=== PATIENT | male | born 1965 | race Caucasian/White ===

== ENCOUNTER 2017-11-27 10:08 | Inpatient (IN) | payer OTHER ==
[2017-11-27 10:32] LABS: ADD MAN DIFF? NO
[2017-11-27 10:33] LABS: WHITE BLOOD COUNT 5.4 10^3/ul (4.8-10.8)
[2017-11-27 10:33] LABS: BASOPHIL # 0.1 10^3/ul (0.0-0.1); BASOPHILS % 1.1 % (0.0-2.0); EOSINOPHILS % 0.2 % (0.0-7.0); HEMATOCRIT 42.8 % (42.0-52.0); HEMOGLOBIN 14.5 g/dl (14.0-18.0); LYMPHOCYTES # 1.9 10^3/ul (0.8-2.9); LYMPHOCYTES % 35.4 % (15.0-51.0); MEAN CORPUSCULAR HEMOGLOBIN 28.7 pg (29.0-33.0); MEAN CORPUSCULAR HGB CONC 33.9 g/dl (32.0-37.0); MEAN CORPUSCULAR VOLUME 84.6 fl (82.0-101.0); MEAN PLATELET VOLUME 9.5 fl (7.4-10.4); MONOCYTE # 0.6 10^3/ul (0.3-0.9); NEUTROPHIL # 2.8 10^3/ul (1.6-7.5); NEUTROPHILS % 52.1 % (39.0-77.0); PLATELET COUNT 180 10^3/UL (140-415); RED BLOOD COUNT 5.06 10^6/ul (4.70-6.10); RED CELL DISTRIBUTION WIDTH 13.8 % (11.5-14.5)
[2017-11-27 10:35] LABS: MODE ROOM AIR; MetHgb Venous 0.2 %; Sample Type Blood venous; Site VENOUS LINE; Venous COHb 0.2 %; Venous Fraction OxyHgb 74.9 %; Venous Oxygen Sat 75.2 mmHG (55.0-75.0); Venous Total Hemglobin 15.8 g/dl
[2017-11-27] MEDS: SOD CHLORIDE 0.9% 770 ML IV (10:42)
[2017-11-27 11:59] LABS: ANION GAP 24 (5-13)
[2017-11-27 12:00] LABS: BLOOD UREA NITROGEN 12 mg/dl (7-20); CALCIUM 9.6 mg/dl (8.4-10.2); CHLORIDE 106 mmol/L (97-110); CREATININE 0.94 mg/dl (0.61-1.24); GLUCOSE 339 mg/dl (70-220); MAGNESIUM 2.1 mg/dl (1.7-2.5); PHOSPHORUS 3.1 mg/dl (2.5-4.9); POTASSIUM 3.5 mmol/L (3.5-5.1); SODIUM 137 mmol/L (135-144)
[2017-11-27 12:04] LABS: CARBON DIOXIDE 7 mmol/L (21-31)
[2017-11-27] MEDS ORDERED: SOD CHLORIDE 0.9% 1,000 ML IV (12:05)
[2017-11-27] MEDS ORDERED: SODIUM CHLORIDE 23.4% 77 MEQ in DEXTROSE 10% 1,000 ML IV (12:05)
[2017-11-27] MEDS: LACTATED RINGER S IV ×2 (12:10→13:35)
[2017-11-27] MEDS ORDERED: DEXTROSE 50% 50 ML SYRINGE IV ×2 (12:30)
[2017-11-27] MEDS: LIDOCAINE/MYLANTA 40 ML BTL PO (13:17)
[2017-11-27 13:33] LABS: ANION GAP 21 (5-13); BLOOD UREA NITROGEN 10 mg/dl (7-20); CARBON DIOXIDE 10 mmol/L (21-31); CHLORIDE 107 mmol/L (97-110); CREATININE 0.79 mg/dl (0.61-1.24); GLUCOSE 264 mg/dl (70-220); MAGNESIUM 2.1 mg/dl (1.7-2.5); PHOSPHORUS 2.8 mg/dl (2.5-4.9); POTASSIUM 3.9 mmol/L (3.5-5.1); SODIUM 138 mmol/L (135-144)
[2017-11-27 14:09] LABS: HEMOGLOBIN A1C 12.3 % (0-5.9)
[2017-11-27 14:28] LABS: TROPONIN-I < 0.012 ng/ml (0.000-0.120)
[2017-11-27] MEDS: INSULIN REGULAR, HUMAN 100 UNIT in SOD CHLORIDE 0.9% 100 ML IV (14:30)
[2017-11-27] MEDS: SODIUM CHLORIDE 23.4% 77 MEQ, POTASSIUM CHLORIDE 30 MEQ in DEXTROSE 10% 1,000 ML IV ×2 (14:30→15:30)
[2017-11-27] MEDS: POTASSIUM CHLORIDE 30 MEQ in SOD CHLORIDE 0.9% 1,000 ML IV (14:30)
[2017-11-27 16:00] LABS: MODE ROOM AIR; MetHgb Venous 1.6 %; Sample Type Blood venous; Site VENOUS LINE; Venous COHb 0.3 %; Venous Fraction OxyHgb 30.7 %; Venous Oxygen Sat 31.3 mmHG (55.0-75.0)
[2017-11-27 16:28] LABS: ANION GAP 18 (5-13); BLOOD UREA NITROGEN 9 mg/dl (7-20); CALCIUM 8.7 mg/dl (8.4-10.2); CARBON DIOXIDE 12 mmol/L (21-31); CHLORIDE 108 mmol/L (97-110); CREATININE 0.86 mg/dl (0.61-1.24); GLUCOSE 200 mg/dl (70-220); MAGNESIUM 2.2 mg/dl (1.7-2.5); PHOSPHORUS 2.3 mg/dl (2.5-4.9); POTASSIUM 3.3 mmol/L (3.5-5.1); SODIUM 138 mmol/L (135-144)
[2017-11-27 18:38] LABS: ANION GAP 16 (5-13); BLOOD UREA NITROGEN 10 mg/dl (7-20); CARBON DIOXIDE 15 mmol/L (21-31); CHLORIDE 106 mmol/L (97-110); CREATININE 0.82 mg/dl (0.61-1.24); GLUCOSE 210 mg/dl (70-220); MAGNESIUM 2.2 mg/dl (1.7-2.5); PHOSPHORUS 1.4 mg/dl (2.5-4.9); POTASSIUM 4.1 mmol/L (3.5-5.1); SODIUM 137 mmol/L (135-144)
[2017-11-27] MEDS: POTASSIUM CHLORIDE (SR) 20 MEQ TAB PO (19:00)
[2017-11-27 20:49] LABS: ANION GAP 14 (5-13); BLOOD UREA NITROGEN 9 mg/dl (7-20); CALCIUM 8.8 mg/dl (8.4-10.2); CARBON DIOXIDE 15 mmol/L (21-31); CHLORIDE 107 mmol/L (97-110); CREATININE 0.71 mg/dl (0.61-1.24); GLUCOSE 235 mg/dl (70-220); MAGNESIUM 2.1 mg/dl (1.7-2.5); PHOSPHORUS 1.4 mg/dl (2.5-4.9); SODIUM 136 mmol/L (135-144)
[2017-11-27] MEDS: LOSARTAN 50 MG TAB PO (21:00)
[2017-11-27 21:07] LABS: POTASSIUM 2.9 mmol/L (3.5-5.1)
[2017-11-27] MEDS: POTASSIUM CHLORIDE 40 MEQ in SOD CHLORIDE 0.9% 1,000 ML IV (21:44)
[2017-11-27] MEDS: POTASSIUM CHLORIDE 100 ML IVPB (21:59)
[2017-11-27] MEDS: SODIUM CHLORIDE 23.4% 77 MEQ, POTASSIUM CHLORIDE 40 MEQ in DEXTROSE 10% 1,000 ML IV (23:41)
[2017-11-28] MEDS: POTASSIUM CHLORIDE 100 ML IVPB (00:36)
[2017-11-28 01:46] LABS: ANION GAP 7 (5-13); BLOOD UREA NITROGEN 9 mg/dl (7-20); CALCIUM 8.9 mg/dl (8.4-10.2); CARBON DIOXIDE 18 mmol/L (21-31); CHLORIDE 111 mmol/L (97-110); CREATININE 0.61 mg/dl (0.61-1.24); GLUCOSE 147 mg/dl (70-220); PHOSPHORUS 1.3 mg/dl (2.5-4.9); POTASSIUM 3.5 mmol/L (3.5-5.1); SODIUM 136 mmol/L (135-144)
[2017-11-28] MEDS: INSULIN REGULAR, HUMAN 100 UNIT in SOD CHLORIDE 0.9% 100 ML IV (01:56)
[2017-11-28] MEDS: SODIUM CHLORIDE 23.4% 77 MEQ, POTASSIUM CHLORIDE 30 MEQ in DEXTROSE 10% 1,000 ML IV (03:03)
[2017-11-28] MEDS: INSULIN GLARGINE [LANTus] (100 UNITS/ML) SYG SC ×2 (03:10→20:07)
[2017-11-28 05:55] LABS: CHOLESTEROL 212 mg/dl (100-200)
[2017-11-28 05:55] LABS: CHOL/HDL RATIO 6.2 RATIO; HDL CHOLESTEROL 34 mg/dl (28-71); LDL CHOLESTEROL,CALCULATED 142 mg/dl; TRIGLYCERIDES 178 mg/dl (0-149)
[2017-11-28 06:04] LABS: ANION GAP 7 (5-13); BLOOD UREA NITROGEN 9 mg/dl (7-20); CARBON DIOXIDE 19 mmol/L (21-31); CHLORIDE 111 mmol/L (97-110); CREATININE 0.62 mg/dl (0.61-1.24); GLUCOSE 158 mg/dl (70-220); PHOSPHORUS 1.3 mg/dl (2.5-4.9); POTASSIUM 3.3 mmol/L (3.5-5.1); SODIUM 137 mmol/L (135-144)
[2017-11-28 08:38] LABS: ANION GAP 8 (5-13); BLOOD UREA NITROGEN 8 mg/dl (7-20); CARBON DIOXIDE 18 mmol/L (21-31); CHLORIDE 110 mmol/L (97-110); CREATININE 0.58 mg/dl (0.61-1.24); GLUCOSE 134 mg/dl (70-220); PHOSPHORUS 1.4 mg/dl (2.5-4.9); POTASSIUM 3.4 mmol/L (3.5-5.1); SODIUM 136 mmol/L (135-144)
[2017-11-28] MEDS: METOPROLOL (XL) 25 MG TAB PO (09:44)
[2017-11-28] MEDS: POTASSIUM CHLORIDE (SR) 20 MEQ TAB PO (09:45)
[2017-11-28] MEDS ORDERED: GLUCOSE GEL 15 GRAM TUBE PO ×2 (10:30)
[2017-11-28] MEDS ORDERED: GLUCOSE GEL 15 GRAM TUBE BUCCAL (10:30)
[2017-11-28] MEDS ORDERED: GLUCAGON 1 MG INJ IM (10:30)
[2017-11-28] MEDS ORDERED: DEXTROSE 50% 50 ML SYRINGE IV ×2 (10:30)
[2017-11-28] MEDS: INSULIN ASPART [NOVOLOG] 3 ML PEN SC ×5 (11:59→21:28)
[2017-11-28 12:43] LABS: ANION GAP 11 (5-13); BLOOD UREA NITROGEN 9 mg/dl (7-20); CALCIUM 8.8 mg/dl (8.4-10.2); CARBON DIOXIDE 18 mmol/L (21-31); CHLORIDE 105 mmol/L (97-110); CREATININE 0.65 mg/dl (0.61-1.24); GLUCOSE 227 mg/dl (70-220); MAGNESIUM 1.8 mg/dl (1.7-2.5); PHOSPHORUS 1.7 mg/dl (2.5-4.9); POTASSIUM 3.9 mmol/L (3.5-5.1); SODIUM 134 mmol/L (135-144)
[2017-11-28] MEDS: IOHEXOL 14.3 MG(I)/ML (ADULT) BTL PO (13:25)
[2017-11-28] MEDS: LINAGLIPTIN 5 MG TABLET PO (14:27)
[2017-11-28 17:17] LABS: ANION GAP 8 (5-13); BLOOD UREA NITROGEN 8 mg/dl (7-20); CARBON DIOXIDE 21 mmol/L (21-31); CHLORIDE 105 mmol/L (97-110); CREATININE 0.65 mg/dl (0.61-1.24); GLUCOSE 130 mg/dl (70-220); MAGNESIUM 1.9 mg/dl (1.7-2.5); PHOSPHORUS 1.5 mg/dl (2.5-4.9); POTASSIUM 3.5 mmol/L (3.5-5.1); SODIUM 134 mmol/L (135-144)
[2017-11-28] MEDS: REPAGLINIDE 1 MG TAB PO (17:21)
[2017-11-28] MEDS: SOD CHLORIDE 0.9% 100 ML (17:27)
[2017-11-28] MEDS: IODIXANOL LOCM 100 ML BTL (17:28)
[2017-11-28] MEDS: LOSARTAN 50 MG TAB PO (21:26)
== END 2017-11-28 22:45 | disposition home or self-care (01) | DRG 639 ==
LOC: E/R 10:08 → 2NE 11-28 12:49 → ICU 12:35
DX: E11.10 Type 2 diabetes mellitus with ketoacidosis without coma (principal); I10 Essential (primary) hypertension; N28.1 Cyst of kidney, acquired
CPT/HCPCS: 36415; 74177; 76775; 80048; 80061; 82803; 82962; 83036; 83735; 84100; 84484; 85025; 87040; 87081; 93970; 96360; 99291-25